=== PATIENT | male | born 1980 ===

== ENCOUNTER 2024-04-22 13:32 | Outpatient (CLI) | payer OTHER ==
--- NOTE | 2024-04-22 15:30 | Ultrasound Report ---
PROCEDURE: Soft Tissue Head or Neck INDICATIONS: HEAD MASS TECHNIQUE: Real-time scanning was performed of the neck with image documentation. COMPARISON: None FINDINGS: Within the left occipital region there is a subcutaneous anechoic focus measuring 13 mm x 4 mm x 8 mm which is well-circumscribed. IMPRESSION: Subcutaneous cyst. Reviewed by: Dominguez Griffin MD on 04/22/2024 3:29 PM PDT Approved by: Dominguez Griffin MD on 04/22/2024 3:29 PM PDT Station ID: [id number]
== END 2024-04-22 13:33 | disposition home or self-care (01) ==
LOC: DI 13:32
PROVIDERS: ATTEND Internal Medicine
DX: L72.9 Follicular cyst of the skin and subcutaneous tissue, unspecified (principal)